=== PATIENT | female | born 1990 | race Caucasian/White ===

== ENCOUNTER 2018-02-23 13:51 | Emergency (ER) | payer MEDICAID ==
[~2018-02-23] VITALS: Ht 154.9 cm; Wt 81.6 kg
[2018-02-23 14:02] VITALS: BP_SYST 127
--- NOTE | 2018-02-23 15:50 | NUR ---
Pt placed in bed 4
--- NOTE | 2018-02-23 15:52 | NUR ---
Pt brought by self ,A&Ox4, pt presents to ER with bump on perineal area pain level 9/10, difficulty walking due to pain, VS WNL, respirations even and unlabored, cap refill <3,afebrile.
--- NOTE | 2018-02-23 16:00 | NUR ---
Dolores Kingston BUT[employer] CUTTER at bedside examining patient
--- NOTE | 2018-02-23 16:11 | NUR ---
Pt moved to bed 8
[2018-02-23] MEDS ORDERED: DIPHENHYDRAMINE INJ 50 MG/ML VIAL IVP ONE (16:15)
[2018-02-23] MEDS ORDERED: fentaNYL CITRATE/PF 100 MCG/2 ML AMP IVP ONE (16:15)
[2018-02-23] MEDS ORDERED: LIDOCAINE/EPI 2% 1:100000 20 ML VIAL INJ ONE (16:15)
[2018-02-23] MEDS ORDERED: LIDOCAINE/PRILOCAINE 5 GM CREAM (EMLA) TP ONE (16:15)
--- NOTE | 2018-02-23 17:15 | NUR ---
I&D Procedure done by jasper Mas using sterile technique. Lidocaine 1% used. Wound packed with . Adaptic, 4x4 and shazia to wound. amt of bleeding noted. Wound care discussed w/ patient. Pt tolerated procedure well.
[2018-02-23] MEDS ORDERED: ONDANSETRON 4 MG ODT TAB PO ONE (17:45)
[2018-02-23] MEDS ORDERED: ONDANSETRON 4 MG ODT TAB ONE (17:58)
--- NOTE | 2018-02-23 18:00 | NUR ---
Pt c/o nausea /vomiting, order recieved for Zofran, welll tolerated
[2018-02-23 18:24] VITALS: BP_SYST 127
--- NOTE | 2018-02-23 18:27 | NUR ---
Patient given written and verbal discharge instructions and verbalizes understanding. ER MD discussed with patient the results and treatment provided. Patient in stable condition. ID arm band removed. IV catheter removed intact and dressing applied, no active bleeding. Rx of Motrin,Bactrim,Mupirocin, Tramadol, Keflex given. Patient educated on pain management and to follow up with PMD. Pain Scale 3/10 tolerable for patient . Opportunity for questions provided and answered. Medication side effect fact sheet provided.
== END 2018-02-23 18:24 | disposition home or self-care (01) ==
LOC: SED 13:51
DX: L02.214 Cutaneous abscess of groin (principal); R03.0 Elevated blood-pressure reading, without diagnosis of hypertension
CPT/HCPCS: 10060; 96374; 96375; 99283; J1200; J3010; Q0162

== ENCOUNTER 2018-02-27 22:59 | Emergency (ER) | payer MEDICAID ==
[~2018-02-27] VITALS: Ht 154.9 cm; Wt 81.6 kg
[2018-02-27 23:19] VITALS: BP_SYST 128
[2018-02-28 00:05] VITALS: BP_SYST 120
== END 2018-02-28 00:05 | disposition home or self-care (01) ==
LOC: SED 22:59
DX: Z48.01 Encounter for change or removal of surgical wound dressing (principal)
CPT/HCPCS: 99282